=== PATIENT | female | born 1980 | race Caucasian/White ===

== ENCOUNTER 2020-04-12 12:15 | Emergency (ER) | payer OTHER ==
[~2020-04-12] VITALS: Ht 167.6 cm; Wt 54.4 kg
[2020-04-12 12:36] LABS: ABSOLUTE EOSINOPHILS 0.2 thou/uL (0.0-0.7); ABSOLUTE LYMPHOCYTES 1.9 thou/uL (0.8-5.3); ABSOLUTE MONOCYTES 0.5 thou/uL (0.0-1.2); ABSOLUTE NEUTROPHILS 3.7 thou/uL (1.6-8.1); BASOPHILS 0.6 %; EOSINOPHILS 2.6 %; HEMATOCRIT 35.2 % (37.0-47.0); LYMPHOCYTES 30.6 %; MCH 31.7 pg (26.0-34.0); MCV 93.2 fL (80.0-100.0); MONOCYTES 8.1 %; MPV 8.6 fl. (7.2-11.1); NUCLEATED RBCS 0 /100WBC; PLATELET COUNT* 228 thou/uL (150-400); POLYS 58.1 %; RBC 3.78 mil/uL (4.20-5.00); RDW-CV 13.7 % (10.5-14.5); WBC 6.3 thou/uL (4.0-11.0)
[2020-04-12 13:01] LABS: CALCIUM 8.9 mg/dL (8.5-10.1); CREATININE 0.8 mg/dL (0.6-1.3); TOTAL BILIRUBIN 0.2 mg/dL (<0.1-1.0); TOTAL PROTEIN 7.2 g/dL (6.4-8.2)
[2020-04-12 13:55] VITALS: BP 99/76
--- NOTE | 2020-04-12 14:38 | EKG ---
[place] [address] ELECTROCARDIOGRAM REPORT Name: EMMA HERNÁNDEZ Room: [facility]#: [id number] Admission: 04/12/20 Attend Phys: Discharge: 04/12/20 Date of : 84 Date of Service: 04/12/20 1221 Report #: [id number] THIS REPORT FOR: //name// [facility] ED Test Date: 2020-04-12 Test Time: 12:21:34 Pat Name: EMMA HERNÁNDEZ Department: Room: Gender: F Catering Chef: LORENZO : 1980 Requested By: Ngoc Teague Order Number: [id number] MD: Av Pop Measurements Intervals [place] Rate: 56 P: 62 ND: 110 QRS: 55 QRSD: 109 T: 53 QT: 444 QTc: 429 Interpretive Statements Sinus rhythm Borderline short ND interval Baseline wander in lead(s) V1,V2 No previous ECG available for comparison Electronically Signed On 04-12-2020 14:38:38 CDT by Av Pop [email or web address] <ELECTRONICALLY SIGNED> By: Av Pop MD, [facility] 04/12/20 1438 1221 1221 Av Pop MD, [facility] /EPI
== END 2020-04-12 13:56 | disposition home or self-care (01) ==
LOC: M.ERS 12:15
PROVIDERS: Nurse Practitioner Family
DX: R07.89 Other chest pain (principal); Z88.6 Allergy status to analgesic agent